=== PATIENT | female | born 1990 | race Caucasian/White ===

== ENCOUNTER 2022-07-01 22:15 | Inpatient (IN) | payer BC ==
[~2022-07-01] VITALS: Ht 160 cm; Wt 96.2 kg
[2022-07-01] MEDS ORDERED: TERBUTALINE SULFATE 1 MG/ML VIAL SUBCUT ONE (23:30)
[2022-07-01] MEDS ORDERED: TERBUTALINE SULFATE 1 MG/ML VIAL SUBCUT PRN (23:30)
[2022-07-01] MEDS ORDERED: NALOXONE HCL 0.4 MG/ML AMP (NARCAN) IVP PRN (23:30)
[2022-07-01] MEDS: LR 1,000 ML IV SCH (23:35)
[2022-07-01] MEDS ORDERED: ONDANSETRON HCL 4 MG/2 ML VIAL IVP PRN (23:45)
[2022-07-02 00:09] LABS: BASOPHILS % (AUTO) 0.3 % (0.0-2.0); EOSINOPHILS # (AUTO) 0.1 K/uL (0.0-0.4); EOSINOPHILS % (AUTO) 0.4 % (0.0-4.0); HEMATOCRIT 38.1 % (36-48); LYMPHOCYTES # (AUTO) 1.6 K/uL (1.0-5.5); LYMPHOCYTES % (AUTO) 12.6 % (20.5-51.5); MEAN CORPUSCULAR HEMOGLOBIN 30 pg (27-31); MEAN CORPUSCULAR HGB CONC 34 % (32-36); MEAN CORPUSCULAR VOLUME 88 fL (79.0-98.0); MONOCYTES # (AUTO) 0.6 K/uL (0.0-1.0); MONOCYTES % (AUTO) 4.7 % (1.7-9.3); NEUTROPHILS # (AUTO) 10.2 K/uL (1.8-7.7); PLATELET COUNT (AUTO) 203 K/uL (130-430); RED BLOOD CELL COUNT(AUTO) 4.31 MIL/uL (4.2-6.2); RED CELL DISTRIBUTION WIDTH 13.6 % (9.0-15.0); WHITE BLOOD COUNT (AUTO) 12.4 K/uL (4.8-10.8)
[2022-07-02] MEDS ORDERED: ACETAMINOPHEN 325 MG TABLET ONE (04:58)
[2022-07-02] MEDS ORDERED: ACETAMINOPHEN 325 MG TABLET PO PRN (05:00)
[2022-07-02] MEDS: MORPHINE SULFATE 10 MG/ML VIAL IM PRN ×2 (06:07→10:59)
[2022-07-02] MEDS ORDERED: NALOXONE HCL 0.4 MG/ML AMP (NARCAN) IVP PRN ×2 (07:00→14:45)
[2022-07-02] MEDS ORDERED: HYDROmorphone 1 MG/ML INJ. CARTRIDGE IVP PRN (07:00)
[2022-07-02] MEDS: LR 1,000 ML IV SCH (11:45)
[2022-07-02] MEDS ORDERED: BETAMET ACET/BETAMET NA PH 30 MG/5 ML VIAL IM ONE (14:45)
[2022-07-02] MEDS ORDERED: ceFAZolin SODIUM 2 GM in D5W 100 ML IV ONE (15:00)
[2022-07-02] MEDS: HYDROcodone/ACETAMIN 5-325 MG TAB (NORCO/ VICODIN) PO PRN ×2 (15:16→19:42)
[2022-07-02] MEDS: ceFAZolin SODIUM 1 GM in D5W 50 ML IV SCH (22:07)
[2022-07-03] MEDS: HYDROcodone/ACETAMIN 5-325 MG TAB (NORCO/ VICODIN) PO PRN ×6 (00:01→21:45)
[2022-07-03] MEDS: LR 1,000 ML IV SCH (05:02)
[2022-07-03] MEDS: ceFAZolin SODIUM 1 GM in D5W 50 ML IV SCH (05:50)
[2022-07-03] MEDS ORDERED: cephALEXin 500 MG CAPSULE PO SCH (13:00)
[2022-07-03] MEDS ORDERED: BETAMET ACET/BETAMET NA PH 30 MG/5 ML VIAL IM ONE (18:45)
[2022-07-03] MEDS: cephALEXin 500 MG CAPSULE PO SCH (18:55)
[2022-07-04] MEDS: cephALEXin 500 MG CAPSULE PO SCH ×3 (01:13→13:34)
[2022-07-04] MEDS: HYDROcodone/ACETAMIN 5-325 MG TAB (NORCO/ VICODIN) PO PRN ×4 (01:14→14:03)
[2022-07-04] MEDS ORDERED: DOCUSATE SODIUM 100 MG CAPSULE PO SCH (09:00)
[2022-07-04] MEDS ORDERED: SIMETHICONE 80 MG TAB.CHEW PO PRN (13:45)
[2022-07-04] MEDS ORDERED: HYDR-3919 PO (15:04)
== END 2022-07-04 15:25 | disposition home or self-care (01) | DRG 833 ==
LOC: SPU 22:15 → OBSVTOIN 07-04
PROVIDERS: ADMIT Specialist; ATTEND Specialist
DX: O26.833 Pregnancy related renal disease, third trimester (principal); N28.1 Cyst of kidney, acquired; K59.00 Constipation, unspecified; O99.611 Diseases of the digestive system complicating pregnancy, first trimester; O36.8330 Maternal care for abnormalities of the fetal heart rate or rhythm, third trimester, not applicable or unspecified; Z3A.34 34 weeks gestation of pregnancy
CPT/HCPCS: 36415; 76770; 76815; 81002; 85025; 86886; 86900; 86901; G0378; J0690; J0702; J2270; J2405; J7060